=== PATIENT | female | born 1970 | race Hispanic/Latino ===

== ENCOUNTER 2016-07-19 17:50 | Emergency (ER) | payer OTHER ==
[~2016-07-19] VITALS: Ht 152.4 cm; Wt 86.4 kg
[2016-07-19 18:21] VITALS: BP 175/88; PULSE 74; RESP 20; O2SAT 100
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
[2016-07-19 20:56] LABS: APPEARANCE,URINE CLEAR (CLEAR,HAZY); COLOR,URINE STRAW (YELLOW); OCCULT BLOOD,URINE TRACE (NEGATIVE); UROBILINOGEN,URINE NORMAL (NORMAL)
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
[2016-07-19] MEDS ORDERED: ROB500 PO (21:44)
[2016-07-19] MEDS ORDERED: MELO-259 PO (21:44)
[2016-07-19] MEDS ORDERED: RANI-426 PO (21:44)
[2016-07-19 22:12] VITALS: BP 141/79; PULSE 69; RESP 17; O2SAT 99
[2016-07-19 22:15] VITALS: BP 141/79; PULSE 69; RESP 17; O2SAT 99
== END 2016-07-19 22:16 | disposition home or self-care (01) ==
LOC: SED 17:50
DX: S39.012A Strain of muscle, fascia and tendon of lower back, initial encounter (principal); V49.40XA Driver injured in collision with unspecified motor vehicles in traffic accident, initial encounter; Y93.89 Activity, other specified; Y92.410 Unspecified street and highway as the place of occurrence of the external cause; Y99.8 Other external cause status; R42 Dizziness and giddiness